=== PATIENT | female | born 1960 | race Caucasian/White ===

== ENCOUNTER → 2018-07-13 | Outpatient (CLI) | payer BC ==
--- NOTE | 2018-07-15 11:54 | MM ---
Reason for exam: screening (asymptomatic). Last mammogram was performed 1 year and 3 months ago. History: Patient has history of other cancer at age 35. Took hormonal contraceptives for 4 years beginning at age 20. Physical Findings: A clinical breast exam by your physician is recommended on an annual basis and results should be correlated with mammographic findings. MG 3D Screening Mammo W/Cad Bilateral CC and MLO view(s) were taken. Prior study comparison: April 22, 2017, bilateral MG 3d screening mammo w/cad. May 02, 2015, bilateral MG screening mammo w/o cad. There are scattered fibroglandular densities. No suspicious abnormality. No significant changes when compared with prior studies. ASSESSMENT: Negative, BI-RAD 1 RECOMMENDATION: Routine screening mammogram of both breasts in 1 year.
== END ==
LOC: RADMAMWWP 09:14
PROVIDERS: ATTEND Family Medicine
DX: Z12.31 Encounter for screening mammogram for malignant neoplasm of breast (principal)
CPT/HCPCS: 77063; 77067

== ENCOUNTER → 2019-04-14 | Outpatient (CLI) | payer BC ==
[2019-04-14 14:02] VITALS: BP 146/85; PULSE 65; RESP 18
--- NOTE | 2019-04-14 20:12 | P.PAINCN ---
History of Present Illness - Reason for Consult Consult date: 04/14/19 - History of Present Illness This is an initial consultation visit for this 58-year-old female who started complaining of severe neck pain with radiation to the upper extremity, associated with numbness and tingling sensation in the index and middle finger bilaterally but it's more prominent on the right side, the symptoms started in mid December 2018, she denies any initiating event, the pain and numbness is constant and increases with any activity, also patient complaining of severe right shoulder blade pain, increased with any activity, she denies any motor or sensory deficit, she denies any fever or night sweats, and this still the pain interfering with her quality of Past Medical History Past Medical History: Cancer, GERD/Reflux, Hyperlipidemia, Hypertension Additional Past Medical History / Comment(s): hx cervical cancer, unable to take statins History of Any Multi-Drug Resistant Organisms: None Reported Past Surgical History: Hernia Repair, Hysterectomy Additional Past Surgical History / Comment(s): miguelina fundlaplication Past Anesthesia/Blood Transfusion Reactions: No Reported Reaction Smoking Status: Current every day smoker Medications and Allergies Home Medications Medication Instructions Recorded Confirmed Type Bisoprolol-Hctz 2.5-6.25 mg [Ziac 1 each PO DAILY 11/28/13 04/12/19 History 2.5-6.25 MG] Lillian 500 mg PO MOWEFR 11/28/13 04/12/19 History Magnesium 200 mg PO DAILY 11/28/13 04/12/19 History Calcium Carbonate [Calcium] 600 mg PO DAILY 04/12/19 04/12/19 History Meloxicam [Mobic] 7.5 mg PO DAILY PRN 04/12/19 04/12/19 History Allergies Allergy/AdvReac Type Severity Reaction Status Date / Time Fcyrzdf-Chp-Jpq Reductase Allergy Intermediate Unknown Verified 04/12/19 11:25 Inhibitor Physical Exam Vitals: Vital Signs Pulse Resp BP Pulse Ox 04/14/19 13:52 65 18 146/85 97 REVIEW OF ORGAN SYSTEMS: CONSTITUTIONAL: No fevers or chills. No recent weight loss. EYES: History of troubles with vision. No glasses. HEENT: No difficulties with hearing. No nosebleeds. No difficulty swallowing. RESPIRATORY: Past pneumonia. Denies any troubles with breathing or dyspnea on exertion. CARDIOVASCULAR: Denies any chest pain, palpitations, or recent heart attacks. GASTROINTESTINAL: Denies fatty food intolerance. Has change in bowel habits and gas bloat. GENITOURINARY: Denies any blood in urine. Has increased urinary frequency. NEUROLOGICAL: numbness and tingling along the distal upper extremities. No seizure disorders or headaches. MUSCULOSKELETAL: neck pain, upper extremity numbness SKIN: Past t skin cancer. No rash. PSYCHIATRIC: Denies current depression or suicidal tho ughts. ENDOCRINE: Denies current thyroid disorders. Denies any blood sugar glucose intolerance. HEME/LYMPHATIC: Denies any lumps and bumps around the neck. History of deep venous thrombosis. ALLERGY/IMMUNOLOGY: No immunoglobulin therapy. No immune deficiencies. BREAST: Denies current breast lumps, pain or nipple discharge. Physical Examinations : Constitutiona : Cooperative , not in acute distress . HEENT : nech : supple , no Lymphadenopathy , normal thyroid size . eyes : no ptosis , no icterus, no photophobia . ENT : normal of hearing , normal oropharynx , no Thrush . Respiratory : Chest clear to auscultations Bilaterally , no wheezing , no Rhonchi . Cardiovascula : regular rate and rhythem , S1 , S2 , no S3 , no S4. Gastrointestina : abdomen soft no tenderness , bowel sounds , no organomegally . Genitourinary : Defferred . neurologic : Cranial nerve II to XII intact , no focal neurological deffecit . psychatric : alert , oriented X 3 , appropriate affect , intact judgment and insight . Lymphatic : no Lymphadenopathy . musculoskeltal : Cervical Spine motor stregnth in the deltoid and biceps, normal right side , normal Left side motor stregnth biceps and the wrist extensors normal right side ,normal left side . motor stregnth in the triceps muscle . normal Right side , normal Left side deep tendon reflexes normal at the biceps , normal at Brachioradialis , normal at triceps. cervical facet loading test: Positive Bilaterally Spurling test =positive bilaterally. Neck distraction= test positive bilaterally. Adrian sign =positive bilaterally. Trigger point in the right side supra scapular area Lumber spine moter stegnth lower extremities ,thigh and legs 5/5 Right side , 5/5 Left side Results Comments: MRI of the cervical spine= C3 4 disc osteophyte complex, C4 5 disc bulging and facet arthropathy, C5 6 disc bulging Assessment and Plan Plan: Assessment and plan=1-cervical radiculopathy. 2- myofascial pain syndrome right side suprascapular area. 3-cervical spondylosis with cervical facet arthropathy. Patient will be good candidate to have cervical epidural steroid injections under fluoroscopy guidance at C7-T1, and at the same time we can do a right-sided suprascapular trigger point injection, procedure risks and benefits and alternatives discussed with the patient ,she agreed with proceeding Time with Patient: Greater than 30 PQRS Measure Charge Sheet Measure #130: Documentation of Current Meds in Medical Chart: Patient's medications documented in chart Measure #226: Tobacco Use: Screen & Cessation Intervention: Pt screened for tobacco use AND intervention given Measure #111: Pneumonia Vaccination: Pneumococcal vaccine administered or previously received Measure #47: Advance Care Plan: Advance care planning discussed & documented, pt chose/unable to give Measure #412: Opioid Treatment Agreement: No documentation of signed opioid treatment agreement Measure #408: Opioid Therapy Follow-up Evaluation: Patient had NO f/u eval minimum every 3 months during opioid therapy Measure #317: Preventitive Care & Scrn High Bld Press & F/U: Pre-hypertensive or hypertensive BP documented, pt will f/u with PCP Measure #128: Body Mass Index (BMI) Screening & Follow-up: BMI documented ABOVE normal parameters - f/u documented Measure #131: Pain Assessment & Follow-up: Pain positive & plan documented, Follow-up scheduled Measure #431: Unhealthy Alcohol Use Preventative Care & Scrn: Patient not identified as an unhealthy alcohol user PQRS Narrative: Smoking Status Current every day smoker Blood Pressure 146/85 Pain Intensity [Back] 6 Pain Intensity [Neck] 4 Scale Used Numeric (1 - 10) Hx Alcohol Use (MH) Yes Home Medications: Ambulatory Orders Bisoprolol-Hctz 2.5-6.25 mg [Ziac 2.5-6.25 MG] 1 each PO DAILY 11/28/13 Lillian 500 mg PO MOWEFR 11/28/13 Magnesium 200 mg PO DAILY 11/28/13 Calcium Carbonate [Calcium] 600 mg PO DAILY 04/12/19 Meloxicam [Mobic] 7.5 mg PO DAILY PRN 04/12/19
== END | disposition home or self-care (01) ==
LOC: PNWHC3 13:36
PROVIDERS: ATTEND Specialist
DX: M48.02 Spinal stenosis, cervical region (principal); M47.22 Other spondylosis with radiculopathy, cervical region; M46.92 Unspecified inflammatory spondylopathy, cervical region; M79.18 Myalgia, other site; F17.200 Nicotine dependence, unspecified, uncomplicated; Z79.1 Long term (current) use of non-steroidal anti-inflammatories (NSAID); Z79.899 Other long term (current) drug therapy
CPT/HCPCS: 99211

== ENCOUNTER 2019-05-04 01:19 | Emergency (ER) | payer BC ==
[2019-05-04 01:57] LABS: ALT 21 U/L (9-52); AST 28 U/L (14-36); African American GFR (CKD) >90 (>60 ml/min/1.73 sqM); Albumin 3.4 g/dL (3.5-5.0); Alkaline Phosphatase 75 U/L (38-126); Anion Gap 6 mmol/L; Blood Urea Nitrogen 22 mg/dL (7-17); Calcium 8.9 mg/dL (8.4-10.2); Carbon Dioxide 25 mmol/L (22-30); Chloride 106 mmol/L (98-107); Glucose 109 mg/dL (74-99); Magnesium 2.2 mg/dL (1.6-2.3); Potassium 4.2 mmol/L (3.5-5.1); Sodium 137 mmol/L (137-145); Total Bilirubin 0.6 mg/dL (0.2-1.3); Total Protein 6.6 g/dL (6.3-8.2)
[2019-05-04 02:19] LABS: Basophils # (A) 0.1 k/uL (0-0.2); Basophils % (A) 1 %; Eosinophils # (A) 0.4 k/uL (0-0.7); Eosinophils % (A) 3 %; HCT 45.7 % (34.0-46.0); HGB 15.5 gm/dL (11.4-16.0); Lymphocytes # (A) 5.1 k/uL (1.0-4.8); Lymphocytes % (A) 35 %; MCH 31.5 pg (25.0-35.0); MCV 92.6 fL (80.0-100.0); Mean Platelet Volume 6.1; Monocytes # (A) 0.8 k/uL (0-1.0); Monocytes % (A) 6 %; Neutrophils # (A) 7.8 k/uL (1.3-7.7); Neutrophils % (A) 54 %; Platelet Count 351 k/uL (150-450); RBC 4.93 m/uL (3.80-5.40); RDW 12.3 % (11.5-15.5); WBC 14.5 k/uL (3.8-10.6)
[2019-05-04 02:24] LABS: INR 0.9 (<1.2); Partial Thromboplastin Time 24.2 sec (22.0-30.0); Prothrombin Time 9.6 sec (9.0-12.0)
--- NOTE | 2019-05-04 02:49 | XR ---
EXAMINATION TYPE: XR chest 2V DATE OF EXAM: 05/04/2019 COMPARISON: 11/28/2013 HISTORY: Chest pain TECHNIQUE: Frontal and lateral views of the chest are obtained. FINDINGS: Heart and mediastinum are normal. Lungs are clear. Diaphragm is normal. Bony thorax appear s normal. IMPRESSION: Normal chest. No change.
--- NOTE | 2019-05-04 03:59 | ED ---
Chest Pain HPI - General Chief Complaint: Chest Pain Stated Complaint: Chest Pain Time Seen by Provider: 05/04/19 03:30 Source: patient, family Mode of arrival: ambulatory Limitations: no limitations - History of Present Illness Initial Comments: Devorah is a pleasant 58-year-old female who presents to the emergency department today for evaluation of 3-5 days of episodes of intermittent sharp chest pain. Patient reports that she's been experiencing intermittent stabbing pains throughout her chest for a few days. She reports that tonight the pain w as persisting kept her from sleeping the entire night which prompted her to come to the ER for further evaluation. Pain is not exertional, pain is not associated with diaphoresis lightheadedness palpitations or shortness of breath. Pain doesn't seem to be positional although the patient did feel that it was worse throughout the night tonight. Patient has no cardiac history. - Related Data Home Medications Medication Instructions Recorded Confirmed Bisoprolol-Hctz 2.5-6.25 mg [Ziac 1 each PO DAILY 11/28/13 04/12/19 2.5-6.25 MG] Lillian 500 mg PO MOWEFR 11/28/13 04/12/19 Magnesium 200 mg PO DAILY 11/28/13 04/12/19 Calcium Carbonate [Calcium] 600 mg PO DAILY 04/12/19 04/12/19 Meloxicam [Mobic] 7.5 mg PO DAILY PRN 04/12/19 04/12/19 Allergies Allergy/AdvReac Type Severity Reaction Status Date / Time Ijpwgnx-Lts-Fdx Reductase Allergy Intermediate Unknown Verified 05/04/19 01:24 Inhibitor Review of Systems ROS Statement: Those systems with pertinent positive or pertinent negative responses have been documented in the HPI. ROS Other: All systems not noted in ROS Statement are negative. EKG Findings - EKG Comments: EKG Findings:: EKG was obtained due to complaint chest pain, EKG was obtained at 1:31 AM, rate is 65 rhythm is sinus there is a normal axis, there are normal intervals, OR 170, cure 74, QTC 45 there is no acute ST elevations or depressions there is no evidence of acute ischemia or infarction. Past Medical History Past Medical History: Cancer, GERD/Reflux, Hyperlipidemia, Hypertension Additional Past Medical History / Comment(s): hx cervical cancer, unable to take statins History of Any Multi-Drug Resistant Organisms: None Reported Past Surgical History: Hernia Repair, Hysterectomy Additional Past Surgical History / Comment(s): miguelina fundlaplication Past Anesthesia/Blood Transfusion Reactions: No Reported Reaction Past Psychological History: Anxiety Smoking Status: Current every day smoker Past Alcohol Use History: None Reported Past Drug Use History: None Reported General Exam - General Exam Comments Initial Comments: Physical Exam GENERAL: Patient is well-developed and well-nourished. Patient is nontoxic and well- hydrated and is in no distress. HENT: Normocephalic, Atraumatic. EYES: PERRL, EOMI PULMONARY: Unlabored respirations. No audible rales rhonchi or wheezing was noted. CARDIOVASCULAR: There is a regular rate and rhythm without any murmurs gallops or rubs. ABDOMEN: Soft and nontender with normal bowel sounds. SKIN: Skin is clear with no lesions or rashes and otherwise unremarkable. : Deferred NEUROLOGIC: Patient is alert and oriented x3. Moving all extremities spontaneously MUSCULOSKELETAL: Normal extremities with adequate strength and full range of motion. No lower extremity swelling or edema. No calf tenderness. PSYCHIATRIC: Normal psychiatric evaluation. Limitations: no limitations Course Vital Signs 05/04/19 05/04/19 01:20 04:31 Temperature 97.8 F 98 F Pulse Rate 67 50 L Respiratory 20 18 Rate Blood Pressure 129/80 133/70 O2 Sat by Pulse 94 L 96 Oximetry Chest Pain MDM - MDM Patient was seen and evaluated history was obtained from patient and at bedside 58-year-old female with no cardiac history presenting with sharp stabbing sounds like pleuritic chest pain no shortness breath no palpitations no lightheadedness Labs and imaging were unremarkable EKG was nonischemic His physician options were discussed with patient, I offered to keep the patient observation for further evaluation serial troponins and evaluation by cardiology however given the duration of the patient's pain the current negative troponins and normal EKG patient's comfortable with plan for discharge home and outpatient follow-up. All questions attending to care were answered to the best of my ability return parameters were discussed patient was discharged home in stable condition. Disposition Clinical Impression: Atypical chest pain, URI (upper respiratory infection) Disposition: HOME SELF-CARE Condition: Stable Instructions (If sedation given, give patient instructions): Chest Pain (ED) Is patient prescribed a controlled substance at d/c from ED?: No Referrals: Jacky De La Garza MD [Primary Care Provider] - 1-2 days
[2019-05-04 04:32] VITALS: BP 133/70; PULSE 50; RESP 18; TEMP 98
[2019-05-04 05:19] LABS: Anisocytosis (M) Present
== END 2019-05-04 04:33 | disposition home or self-care (01) ==
LOC: EC 01:19
DX: J06.9 Acute upper respiratory infection, unspecified (principal); R07.89 Other chest pain; I10 Essential (primary) hypertension; F17.200 Nicotine dependence, unspecified, uncomplicated; Z79.899 Other long term (current) drug therapy; Z88.8 Allergy status to other drugs, medicaments and biological substances; Z85.41 Personal history of malignant neoplasm of cervix uteri
CPT/HCPCS: 36415; 71046; 80053; 83735; 84484; 85025; 85610; 85730; 93005; 99285

== ENCOUNTER 2022-12-16 01:24 | Emergency (ER) | payer BC ==
[2022-12-16 01:35] VITALS: TEMP 98
[2022-12-16] MEDS ORDERED: SODIUM CHLORIDE 0.9% 1,000 ML IV STA ×2 (01:42→04:20)
[2022-12-16] MEDS ORDERED: KETOROLAC 15 MG/ML 1 ML VIAL IVP STA (01:46)
[2022-12-16] MEDS ORDERED: ONDANSETRON 4 MG/2 ML VIAL IVP STA (01:47)
[2022-12-16] MEDS ORDERED: HYDROmorphone 1 MG/ML 1 ML SYRINGE IVP STA (02:00)
[2022-12-16 03:31] LABS: Basophils # (A) 0.1 k/uL (0-0.2); Basophils % (A) 1 %; Eosinophils # (A) 0.2 k/uL (0-0.7); Eosinophils % (A) 1 %; HCT 45.3 % (34.0-46.0); HGB 15.5 gm/dL (11.4-16.0); Lymphocytes % (A) 21 %; MCH 31.1 pg (25.0-35.0); MCHC 34.2 g/dL (31.0-37.0); MCV 90.7 fL (80.0-100.0); Mean Platelet Volume 7.9; Monocytes # (A) 0.6 k/uL (0-1.0); Monocytes % (A) 4 %; Neutrophils # (A) 10.2 k/uL (1.3-7.7); Neutrophils % (A) 72 %; Platelet Count 323 k/uL (150-450); WBC 14.2 k/uL (3.8-10.6)
[2022-12-16 03:34] LABS: ALT 24 U/L (4-34); AST 26 U/L (14-36); African American GFR (CKD) >90 (>60 ml/min/1.73 sqM); Albumin 3.7 g/dL (3.5-5.0); Alkaline Phosphatase 64 U/L (38-126); Anion Gap 7 mmol/L; Blood Urea Nitrogen 17 mg/dL (7-17); Calcium 8.9 mg/dL (8.4-10.2); Carbon Dioxide 23 mmol/L (22-30); Chloride 107 mmol/L (98-107); Glucose 120 mg/dL (74-99); Lipase 100 U/L (23-300); Non-African American GFR(CKD) >90 (>60 ml/min/1.73 sqM); Potassium 4.4 mmol/L (3.5-5.1); Sodium 137 mmol/L (137-145); Total Bilirubin 0.6 mg/dL (0.2-1.3); Total Protein 6.8 g/dL (6.3-8.2)
--- NOTE | 2022-12-16 04:28 | ED ---
Abdominal Pain HPI <Niels Law - Last Filed: 12/16/22 07:04> - General Source: patient Mode of arrival: ambulatory Limitations: no limitations <Karrie Portillo - Last Filed: 12/16/22 19:57> - General Chief Complaint: Abdominal Pain Stated Complaint: ABD AND BACK PAIN Time Seen by Provider: 12/16/22 01:40 - History of Present Illness Initial Comments: Patient is a 62-year-old female presents to emergency department for abdominal pain. This started abruptly tonight in the right upper abdomen with radiation to the back. Patient reports nausea with multiple episodes of vomiting. Denies fever and chills. Denies burning with urination, blood in the urine, diarrhea, constipation, blood in stool. Denies history of kidney stone, gallstone. (Karrie Portillo) - Related Data Home Medications Medication Instructions Recorded Confirmed Bisoprolol-Hctz 2.5-6.25 mg [Ziac 1 each PO DAILY 11/28/13 04/12/19 2.5-6.25 MG] Lillian 500 mg PO MOWEFR 11/28/13 04/12/19 Magnesium 200 mg PO DAILY 11/28/13 04/12/19 Calcium Carbonate [Calcium] 600 mg PO DAILY 04/12/19 04/12/19 Meloxicam [Mobic] 7.5 mg PO DAILY PRN 04/12/19 04/12/19 Allergies Allergy/AdvReac Type Severity Reaction Status Date / Time Jhtoixc-FJI-GhO Reductase Allergy Intermediate Unknown Verified 12/16/22 01:30 Inhibitor [Tbobrrn-Zbb-Rwo Reductase Inhibitor] acetaminophen [From Vicodin] Allergy Nausea & Verified 12/16/22 01:31 Vomiting hydrocodone [From Vicodin] Allergy Nausea & Verified 12/16/22 01:31 Vomiting Review of Systems ROS Other: All systems not noted in ROS Statement are negative. <Niels Law - Last Filed: 12/16/22 07:04> ROS Other: All systems not noted in ROS Statement are negative. <Karrie Portillo - Last Filed: 12/16/22 19:57> ROS Statement: Those systems with pertinent positive or pertinent negative responses have been documented in the HPI. Past Medical History Past Medical History: Cancer, Hyperlipidemia, Hypertension Additional Past Medical History / Comment(s): hx cervical cancer History of Any Multi-Drug Resistant Organisms: None Reported Past Surgical History: Hernia Repair, Hysterectomy Additional Past Surgical History / Comment(s): miguelina fundlaplication Past Anesthesia/Blood Transfusion Reactions: No Reported Reaction Past Psychological History: Anxiety Smoking Status: Current every day smoker Past Alcohol Use History: None Reported Past Drug Use History: None Reported <Karrie Portillo - Last Filed: 12/16/22 19:57> General Exam Limitations: no limitations Head exam: Present: atraumatic, normocephalic, normal inspection Respiratory exam: Present: normal lung sounds bilaterally. Absent: respiratory distress, wheezes, rales, rhonchi, stridor Cardiovascular Exam: Present: regular rate, normal rhythm, normal heart sounds. Absent: systolic murmur, diastolic murmur, rubs, gallop, clicks GI/Abdominal exam: Present: soft, tenderness (RUQ), normal bowel sounds. Absent: distended, guarding, rebound, rigid Neurological exam: Present: alert, oriented X3, CN II-XII intact Psychiatric exam: Present: normal affect, normal mood Skin exam: Present: warm, dry, intact, normal color. Absent: rash <Karrie Portillo - Last Filed: 12/16/22 19:57> Course Vital Signs 12/16/22 12/16/22 12/16/22 01:31 02:35 05:00 Temperature 98 F Pulse Rate 71 55 L 60 Respiratory 18 12 16 Rate Blood Pressure 152/64 143/77 136/71 O2 Sat by Pulse 97 93 L 96 Oximetry 12/16/22 07:15 Temperature Pulse Rate 62 Respiratory 16 Rate Blood Pressure 128/68 O2 Sat by Pulse 99 Oximetry Medical Decision Making - Lab Data Result diagrams: 12/16/22 02:10 12/16/22 02:10 <Niels Law - Last Filed: 12/16/22 07:04> - Lab Data Result diagrams: 12/16/22 02:10 12/16/22 02:10 <Karrie Portillo - Last Filed: 12/16/22 19:57> - Medical Decision Making Was pt. sent in by a medical professional or institution (, PA, DIRECTOR, urgent care, hospital, or [facility]...) When possible be specific @ -No Did you speak to anyone other than the patient for history (EMS, parent, family, police, friend...)? What history was obtained from this source @ -No Did you review nursing and triage notes (agree or disagree)? Why? @ -I reviewed and agree with nursing and triage notes Were old charts reviewed (outside hosp., previous admission, EMS record, old EKG, old radiological studies, urgent care reports/EKG's, [facility] records)? Report findings @ -No old charts were reviewed Differential Diagnosis (chest pain, altered mental status, abdominal pain women, abdominal pain men, vaginal bleeding, weakness, fever, dyspnea, syncope, headache, dizziness, GI bleed, back pain, seizure, CVA, palpatations, mental health)? @ -Differential Abdominal Pain Women: Appendicitis, Cholecystitis, diverticulosis, ischemic bowel, pancreatitis, hepatitis, UTI, gastroenteritis, AAA, incarcerated hernia, bowel obstruction, constipation, inflammatory bowel, hepatitis, peptic ulcer disease, splenic infarction, perforated viscus, vulvitis, ovarian torsion, PID, kidney stone, placenta abruption, this is not meant to be an all-inclusive list EKG interpreted by me (3pts min.). @ -As above X-rays interpreted by me (1pt min.). @ -None done CT interpreted by me (1pt min.). @ -None done U/S interpreted by me (1pt. min.). @ -None done What testing was considered but not performed or refused? (CT, X-rays, U/S, labs)? Why? @ -None What meds were considered but not given or refused? Why? @ -None Did you discuss the management of the patient with other professionals (professionals i.e. , PA, DIRECTOR, lab, RT, psych nurse, director social, panel beater, teacher, toxics program officer, patient case coordinator)? Give summary @ -No Was smoking cessation discussed for >3mins.? @ -No Was critical care preformed (if so, how long)? @ -No Were there social determinants of health that impacted care today? How? (Homelessness, low income, unemployed, alcoholism, drug addiction, transportation, low edu. Level, literacy, decrease access to med. care, fpc, rehab)? @ -No Was there de-escalation of care discussed even if they declined (Discuss DNR or withdrawal of care, Hospice)? DNR status @ -No What co-morbidities impacted this encounter? (DM, HTN, Smoking, COPD, CAD, Cancer, CVA, ARF, Chemo, Hep., AIDS, mental health diagnosis, sleep apnea, morbid obesity)? @ -None Was patient admitted / discharged? Hospital course, mention meds given and r oute, prescriptions, significant lab abnormalities, going to OR and other pertinent info. @ -This is a 62-year-old female presenting to the emergency department for right upper quadrant pain.Patient afebrile vitals within acceptable limits. Laboratory studies obtained. There is leukocytosis of 14.2. Lactic is elevated at 2.2, likely related to dehydration. Liver enzymes are normal. Patient care given to Dr. Law at 4:[address] of the abdomen and pelvis without contrast interpreted by myself/radiology showing no acute process. Patient was discharged in stable condition she will follow up with general surgery for biliary colic. Undiagnosed new problem with uncertain prognosis? @ -No Drug Therapy requiring intensive monitoring for toxicity (Heparin, Nitro, Insulin, Cardizem)? @ -No Were any procedures done? @ -No Diagnosis/symptom? @ -Biliary colic Acute, or Chronic, or Acute on Chronic? @ -Acute Uncomplicated (without systemic symptoms) or Complicated (systemic symptoms)? @ -[Uncomplicated Side effects of treatment? @ -No Exacerbation, Progression, or Severe Exacerbation? @ -No Poses a threat to life or bodily function? How? (Chest pain, USA, DC, pneumonia, PE, COPD, DKA, ARF, appy, cholecystitis, CVA, Diverticulitis, Homicidal, Suicidal, threat to staff... and all critical care pts) @ -No Dr. Law is my attending (Karrie Portillo) - Lab Data Lab Results 12/16/22 12/16/22 12/16/22 Range/Units 02:10 02:10 02:10 WBC 14.2 H (3.8-10.6) k/uL RBC 5.00 (3.80-5.40) m/uL Hgb 15.5 (11.4-16.0) gm/dL Hct 45.3 (34.0-46.0) % MCV 90.7 (80.0-100.0) fL MCH 31.1 (25.0-35.0) pg MCHC 34.2 (31.0-37.0) g/dL RDW 13.0 (11.5-15.5) % Plt Count 323 (150-450) k/uL MPV 7.9 Neutrophils % 72 % Lymphocytes % 21 % Monocytes % 4 % Eosinophils % 1 % Basophils % 1 % Neutrophils # 10.2 H (1.3-7.7) k/uL Lymphocytes # 3.0 (1.0-4.8) k/uL Monocytes # 0.6 (0-1.0) k/uL Eosinophils # 0.2 (0-0.7) k/uL Basophils # 0.1 (0-0.2) k/uL Sodium 137 (137-145) mmol/L Potassium 4.4 (3.5-5.1) mmol/L Chloride 107 (98-107) mmol/L Carbon Dioxide 23 (22-30) mmol/L Anion Gap 7 mmol/L BUN 17 (7-17) mg/dL Creatinine 0.54 (0.52-1.04) mg/dL Est GFR (CKD-EPI)AfAm >90 (>60 ml/min/1.73 sqM) Est GFR (CKD-EPI)NonAf >90 (>60 ml/min/1.73 sqM) Glucose 120 H (74-99) mg/dL Lactic Ac Sepsis Rflx Plasma Lactic Acid Orion 2.2 H* (0.7-2.0) mmol/L Calcium 8.9 (8.4-10.2) mg/dL Total Bilirubin 0.6 (0.2-1.3) mg/dL AST 26 (14-36) U/L ALT 24 (4-34) U/L Alkaline Phosphatase 64 (38-126) U/L Total Protein 6.8 (6.3-8.2) g/dL Albumin 3.7 (3.5-5.0) g/dL Lipase 100 (23-300) U/L Urine Color Urine Appearance (Clear) Urine pH (5.0-8.0) Ur Specific [place] (1.001-1.035) Urine Protein (Negative) Urine Glucose (UA) (Negative) Urine Ketones (Negative) Urine Blood (Negative) Urine Nitrite (Negative) Urine Bilirubin (Negative) Urine Urobilinogen (<2.0) mg/dL Ur Leukocyte Esterase (Negative) Urine RBC (0-5) /hpf Urine WBC (0-5) /hpf Ur Squamous Epith Cells (0-4) /hpf Urine Bacteria (None) /hpf Hyaline Casts (0-2) /lpf Urine Mucus (None) /hpf 12/16/22 12/16/22 12/16/22 Range/Units 04:07 05:00 06:30 WBC (3.8-10.6) k/uL RBC (3.80-5.40) m/uL Hgb (11.4-16.0) gm/dL Hct (34.0-46.0) % MCV (80.0-100.0) fL MCH (25.0-35.0) pg MCHC (31.0-37.0) g/dL RDW (11.5-15.5) % Plt Count (150-450) k/uL MPV Neutrophils % % Lymphocytes % % Monocytes % % Eosinophils % % Basophils % % Neutrophils # (1.3-7.7) k/uL Lymphocytes # (1.0-4.8) k/uL Monocytes # (0-1.0) k/uL Eosinophils # (0-0.7) k/uL Basophils # (0-0.2) k/uL Sodium (137-145) mmol/L Potassium (3.5-5.1) mmol/L Chloride (98-107) mmol/L Carbon Dioxide (22-30) mmol/L Anion Gap mmol/L BUN (7-17) mg/dL Creatinine (0.52-1.04) mg/dL Est GFR (CKD-EPI)AfAm (>60 ml/min/1.73 sqM) Est GFR (CKD-EPI)NonAf (>60 ml/min/1.73 sqM) Glucose (74-99) mg/dL Lactic Ac Sepsis Rflx Y Plasma Lactic Acid Orion 1.1 (0.7-2.0) mmol/L Calcium (8.4-10.2) mg/dL Total Bilirubin (0.2-1.3) mg/dL AST (14-36) U/L ALT (4-34) U/L Alkaline Phosphatase (38-126) U/L Total Protein (6.3-8.2) g/dL Albumin (3.5-5.0) g/dL Lipase (23-300) U/L Urine Color Light Yellow Urine Appearance Clear (Clear) Urine pH 7.0 (5.0-8.0) Ur Specific [place] 1.008 (1.001-1.035) Urine Protein Negative (Negative) Urine Glucose (UA) Negative (Negative) Urine Ketones Negative (Negative) Urine Blood Trace H (Negative) Urine Nitrite Negative (Negative) Urine Bilirubin Negative (Negative) Urine Urobilinogen <2.0 (<2.0) mg/dL Ur Leukocyte Esterase Negative (Negative) Urine RBC 2 (0-5) /hpf Urine WBC 2 (0-5) /hpf Ur Squamous Epith Cells 1 (0-4) /hpf Urine Bacteria Few H (None) /hpf Hyaline Casts 1 (0-2) /lpf Urine Mucus Rare H (None) /hpf Disposition Is patient prescribed a controlled substance at d/c from ED?: No <Niels Law - Last Filed: 12/16/22 07:04> <Karrie Portillo - Last Filed: 12/16/22 19:57> Clinical Impression: Biliary colic Disposition: HOME SELF-CARE Condition: Good Instructions (If sedation given, give patient instructions): Biliary Colic (ED), Abdominal Pain (ED) Referrals: Jacky De La Garza MD [Primary Care Provider] - 1-2 days Lauren Ruiz MD [STAFF PHYSICIAN] - 1-2 days
[2022-12-16 05:38] LABS: Appearance,Urine Clear (Clear); Bacteria,Urine Few /hpf; Bilirubin,Urine Negative (Negative); Blood,Urine Trace (Negative); Color,Urine Light Yellow; Glucose,Urine (UA) Negative (Negative); Hyaline Casts,Urine 1 /lpf (0-2); Ketones,Urine Negative (Negative); Leukocyte Esterase,Urine Negative (Negative); Mucus,Urine Rare /hpf; Nitrite,Urine Negative (Negative); Protein,Urine Negative (Negative); RBC,Urine 2 /hpf (0-5); Specific Gravity,Urine 1.008 (1.001-1.035); Squamous Epithelial Cell,Urine 1 /hpf (0-4); Urobilinogen,Urine <2.0 mg/dL (<2.0); WBC,Urine 2 /hpf (0-5)
--- NOTE | 2022-12-16 05:54 | CT ---
EXAMINATION TYPE: CT abdomen pelvis wo con DATE OF EXAM: 12/16/2022 HISTORY: Right flank pain. CT DLP: 1504 mGycm. Automated Exposure Control for Dose Reduction was Utilized. TECHNIQUE: CT scan of the abdomen and pelvis is performed without oral or IV contrast. COMPARISON: Pelvic CT March 12, 2012 FINDINGS: Within the limitations of a non-contrast study, the following observations are made. LUNG BASES: Coronary artery calcification is present. LIVER/GB: No significant abnormality is appreciated. PANCREAS: No significant abnormality is seen. SPLEEN: No significant abnormality is seen. ADRENALS: No significant abnormality is seen. KIDNEYS: No renal stones or hydronephrosis is seen bilaterally. No intraluminal calculi in the bladde r. BOWEL: Normal-appearing appendix. Small size hiatal hernia. No suspicious bowel dilatation. GENITAL ORGANS: Uterus is surgically absent or markedly atrophic. LYMPH NODES: No greater than 1cm abdominal or pelvic lymph nodes are appreciated. OSSEOUS STRUCTURES: No significant abnormality is seen. OTHER: Small fat-containing left inguinal hernia is redemonstrated. Moderate calcified plaque of the infrarenal abdominal aorta extends into branch vessels. IMPRESSION: No renal stones or hydronephrosis is seen bilaterally. No acute findings are evident on n oncontrast CT
[2022-12-16 06:06] VITALS: RESP 16
[2022-12-16 07:16] VITALS: BP 128/68; PULSE 62
== END 2022-12-16 07:15 | disposition home or self-care (01) ==
LOC: EC 01:24
DX: K80.50 Calculus of bile duct without cholangitis or cholecystitis without obstruction (principal); I10 Essential (primary) hypertension; F41.9 Anxiety disorder, unspecified; F17.200 Nicotine dependence, unspecified, uncomplicated; Z79.899 Other long term (current) drug therapy; Z88.2 Allergy status to sulfonamides; Z88.8 Allergy status to other drugs, medicaments and biological substances
CPT/HCPCS: 36415; 80053; 83605; 83690; 85025; 81001; 74176; 99284; 96374; 96375 ×2; 96361 ×2; J2405; J1170; J1885

== ENCOUNTER 2024-09-16 09:00 | Day surgery (SDC) | payer BC ==
[2024-09-15 09:50] VITALS: BMI 33.6
[2024-09-16] MEDS: LIDOCAINE 1% (10MG/ML) FOR IV START INTRADERMA STA (12:15)
[2024-09-16] MEDS: LACTATED RINGERS 1,000 ML IV SCH (12:15)
[2024-09-16] MEDS: IV FLUID CONTINUATION 1,000 ML IV ONE (12:15)
[2024-09-16 12:23] VITALS: TEMP 98.1
[2024-09-16] MEDS ORDERED: PROPOFOL 10 MG/ML 20 ML VIAL IV ONE (13:26)
[2024-09-16] MEDS: LACTATED RINGERS 1,000 ML IV ONE (13:45)
[2024-09-16 14:13] VITALS: BP 134/79; PULSE 70; RESP 16
--- NOTE | 2024-09-17 22:54 | P.OP ---
Date of Procedure: 09/16/24 Preoperative Diagnosis: Positive Cologuard Postoperative Diagnosis: Normal Colonoscopy Procedure(s) Performed: Colonoscopy Anesthesia: MAC Surgeon: Esa Andrew Pathology: none sent Condition: stable Disposition: PACU Description of Procedure: The patient was brought to the endoscopy suite and placed in the left lateral decubitus position. After induction of IV sedation, the Olympus video colonoscope was passed to the cecum without difficulty. Cecal intubation was confirmed by the identification of the appendiceal orifice, the ileocecal valve, and cecal strap by palpation. Upon withdrawing the colonoscope, all mucosal surfaces were inspected. There was no evidence of malignancy, neoplasia, polyps, or mucosal abnormalities. There was no diverticulosis noted. Retroflexion in the rectum showed no internal hemorrhoids.
== END 2024-09-16 14:20 | disposition home or self-care (01) ==
LOC: ORWHC2ENDO 09:00
PROVIDERS: ATTEND Surgery
DX: R19.5 Other fecal abnormalities (principal); K21.9 Gastro-esophageal reflux disease without esophagitis; E78.5 Hyperlipidemia, unspecified; F41.9 Anxiety disorder, unspecified; I10 Essential (primary) hypertension; Z79.899 Other long term (current) drug therapy; Z87.891 Personal history of nicotine dependence; Z85.41 Personal history of malignant neoplasm of cervix uteri; Z88.8 Allergy status to other drugs, medicaments and biological substances; Z88.5 Allergy status to narcotic agent
CPT/HCPCS: 45378; J2704